=== PATIENT | female | born 1955 | race Caucasian/White ===

== ENCOUNTER → 2017-10-06 | Outpatient (CLI) | payer BC ==
[~2017-10-06] MED LIST: B12; CALC500T30 PO; ESTR1PAT89 TD; HORMONE; HYDR-3870 PO; LEVO250T11 PO; LORA10TA44 PO; MULTIVITAMIN; NAPR-243 PO; NAPR220C11 PO; PHEN-640 PO; TAMS0.4C98 PO
--- NOTE | 2017-10-06 09:23 | Diagnostic Imaging Report ---
INDICATION: Left ureteral stone Supine image of the abdomen is obtained with comparison made to study of 11/09/2011. Overall bowel gas pattern is within normal limits. Bowel overlies the urinary tract which limits evaluation. There is suggestion of a possible 0.4 cm calcification in the region of lower pole of the left calculus. There is an approximately 0.3 cm calcification projecting over the left L3 transverse process which might reside within the left ureter. Surgical suture material seen in the pelvis bilaterally. IMPRESSION: A 0.3 cm calcification may represent ureteric calculus on the left at L3. There is also increased density projecting over the lower pole of the left kidney which may represent lower pole stone. Dictated by: Dictated on workstation # [id number]
== END ==
LOC: RAD 08:51
PROVIDERS: ATTEND Urology
DX: N20.1 Calculus of ureter (principal)
CPT/HCPCS: 74018

== ENCOUNTER → 2017-10-16 | Outpatient (CLI) | payer BC ==
--- NOTE | 2017-10-16 13:48 | Diagnostic Imaging Report ---
INDICATION: Ureteral stone. COMPARISON: Comparison made with prior examination from 10/06/2017. FINDINGS: The bowel gas pattern is nonspecific. There is now a calcification near the left UVJ. There is a persistent stone overlying the left kidney. The osseous structures are unremarkable. IMPRESSION: Presumed nonobstructing left renal stone as well as stone near the left UVJ. Recommend clinical correlation. Nonspecific bowel gas pattern. Dictated by: Dictated on workstation # [id number]
== END ==
LOC: RAD 13:16
PROVIDERS: ATTEND Urology
DX: N20.1 Calculus of ureter (principal)
CPT/HCPCS: 74018

== ENCOUNTER 2017-10-17 05:48 | Outpatient (CLI) | payer BC ==
[~2017-10-17] VITALS: Ht 162.6 cm; Wt 74.8 kg
[~2017-10-17 05:48] MED LIST changes: -ESTR1PAT89 TD; -HYDR-3870 PO; -LEVO250T11 PO; -LORA10TA44 PO; -NAPR220C11 PO; -PHEN-640 PO; -TAMS0.4C98 PO
[2017-10-17] MEDS ORDERED: NAPR220C11 PO (12:27)
[2017-10-17] MEDS ORDERED: ESTR1PAT89 TD (12:27)
[2017-10-17] MEDS ORDERED: LORA10TA44 PO (12:28)
[2017-10-18] MEDS ORDERED: LEVO250T11 PO (12:32)
[2017-10-18] MEDS ORDERED: TAMS0.4C98 PO (12:32)
[2017-10-18] MEDS ORDERED: PHEN-640 PO (12:32)
[2017-10-18] MEDS ORDERED: HYDR-3870 PO (12:32)
== END 2017-10-17 12:53 | disposition home or self-care (01) ==
LOC: PREOP 05:48
PROVIDERS: ATTEND Urology
DX: Z01.818 Encounter for other preprocedural examination (principal)

== ENCOUNTER 2017-10-18 07:51 | Day surgery (SDC) | payer BC ==
[~2017-10-18] VITALS: Ht 162.6 cm; Wt 74.8 kg
[~2017-10-18 07:51] MED LIST changes: +ESTR1PAT89 TD; +LORA10TA44 PO; +NAPR220C11 PO
--- NOTE | 2017-10-18 08:16 | Progress Note-Pre Operative ---
Pre-Operative Progress Note H&P Reviewed The H&P was reviewed, patient examined and no changes noted. Date Seen by Provider: Oct 18, 2017 Time Seen by Provider: 08:16 Date H&P Reviewed: Oct 18, 2017 Time H&P Reviewed: 08:16 Pre-Operative Diagnosis: LT DISTAL URETERAL STONE KATHERINE HELLER MD Oct 18, 2017 8:16 am
[2017-10-18 08:30] VITALS: BP 144/77
[2017-10-18] MEDS ORDERED: NS (IVPB) 50 ML ONE (08:40)
[2017-10-18] MEDS ORDERED: LACTATED RINGERS 1,000 ML IV PRN (08:51)
--- NOTE | 2017-10-18 08:55 | Diagnostic Imaging Report ---
EXAM: ABDOMEN/KUB 1VIEW INDICATION: Renal stones. COMPARISON: Abdominal radiograph 10/16/2017. FINDINGS: Stable 0.5 cm calcification in the region of the left UVJ. Suture lines in the pelvis. Ill-defined calcifications overlying the inferior pole the left kidney. Moderate degenerative changes in the lumbar spine and both hips. No acute osseous findings. Nonspecific bowel gas pattern. IMPRESSION: Stable calcifications overlying the inferior pole of the left kidney and in the region of the left UVJ may represent renal stones. Dictated by: Dictated on workstation # [id number]
[2017-10-18] MEDS ORDERED: cefTRIAXone INJECTION 1,000 MG in NS (IVPB) 50 ML IV ONE (09:00)
[2017-10-18] MEDS ORDERED: SCOPOLAMINE 1.5 MG (TRANSDERM-SCOP) PATCH ONE (09:07)
[2017-10-18] MEDS ORDERED: FAMOTIDINE 20MG/2ML IV (PEPCID) ONE (09:07)
[2017-10-18] MEDS ORDERED: ONDANSETRON 4 MG/2 ML (SDV) Z0FRAN ONE ×2 (09:07→09:20)
[2017-10-18] MEDS ORDERED: ONDANSETRON 4 MG/2 ML (SDV) Z0FRAN IV ONE (09:15)
[2017-10-18] MEDS ORDERED: FAMOTIDINE 20MG/2ML IV (PEPCID) IV ONE (09:15)
[2017-10-18] MEDS ORDERED: SCOPOLAMINE 1.5 MG (TRANSDERM-SCOP) PATCH TOP ONE (09:15)
[2017-10-18] MEDS ORDERED: SEVOFLURANE (ULTANE) 15 ML INHAL SOLN ONE ×3 (09:20→11:11)
[2017-10-18] MEDS ORDERED: LIDOCAINE PF 2% 5 ML (XYLOCAINE) VIAL ONE (09:20)
[2017-10-18] MEDS ORDERED: ROCURONIUM 10 MG/ML 5 ML SYRINGE IV ONE (09:20)
[2017-10-18] MEDS ORDERED: DEXAMETHASONE 10 MG/ML (DECADRON) 1 ML VIAL ONE (09:20)
[2017-10-18] MEDS ORDERED: proPOfol 200 MG/20 ML (DIPRIVAN) VIAL IV ONE (09:20)
[2017-10-18] MEDS ORDERED: fentaNYL INJECTION 100 MCG/2 ML AMP ONE ×2 (09:20→10:25)
[2017-10-18] MEDS ORDERED: MIDAZOLAM 2 MG/2 ML (VERSED) VIAL ONE (09:21)
[2017-10-18] MEDS ORDERED: CATHETER FLUSH 10 ML SYR IV PRN (09:30)
[2017-10-18] MEDS: cefTRIAXone 1 GM (ROCEPHIN) VIAL ONE ×2 (09:35→12:24)
[2017-10-18] MEDS ORDERED: GLYCOPYRROLATE 0.2 MG/ML (ROBINUL) 2 ML VIAL ONE (10:10)
--- NOTE | 2017-10-18 10:26 | Progress Note-Post Operative ---
Post-Operative Progess Note Surgeon (s)/Sterile Products Processor (s) Surgeon KATHERINE HELLER MD Sterile Products Processor: N/A Pre-Operative Diagnosis LT DISTAL URETERAL STONE AND PROLAPSE Post-Operative Diagnosis SAME Procedure & Operative Findings Date of Procedure 10/18/17 Procedure Performed/Findings LT URETEROSCOPY, RETROGRADE UROGRAM, AND LT ESWL Anesthesia Type GENERAL Estimated Blood Loss Estimated blood loss (mL): N/A Specimens/Packing Specimens Removed N/A Packing: N/A KATHERINE HELLER MD Oct 18, 2017 10:25 am
--- NOTE | 2017-10-18 10:27 | Discharge Inst-Urology ---
Discharge Inst-Urology Discharge Medications New, Converted, or Re-newed RX: RX on Chart Patient Instructions/Follow Up Plan Please make appointment to been seen in office in 3 weeks, KUB prior to it. KUB on way home Post ESWL instructions Increase oral fluids for 48 hours and then as needed. Diet and Activity as tolerated. If questions or concerns contact your physician Or seek help at emergency department. KATHERINE HELLER MD Oct 18, 2017 10:27 am
[2017-10-18] MEDS ORDERED: KETOROLAC 30 MG/ML VIAL ONE (10:49)
[2017-10-18] MEDS ORDERED: FUROSEMIDE 40 MG/4 ML INJ (LASIX) ONE (10:49)
[2017-10-18] MEDS ORDERED: fentaNYL INJECTION 100 MCG/2 ML AMP IVP PRN (11:00)
[2017-10-18] MEDS ORDERED: ONDANSETRON 4 MG/2 ML (SDV) Z0FRAN IVP PRN (11:00)
[2017-10-18] MEDS ORDERED: PROMETHAZINE INJ 25 MG/ML (PHENERGAN) AMP IVP PRN (11:00)
[2017-10-18] MEDS ORDERED: HYDROmorphone 2 MG/ML VIAL (DILAUDID) IV PRN (11:00)
[2017-10-18] MEDS ORDERED: HYDROmorphone 1 MG/ML (DILAUDID) 1 ML SYRINGE IV PRN (11:15)
[2017-10-18 12:05] VITALS: BP 138/70
[2017-10-18] MEDS ORDERED: HYDROcodone/APAP 5 MG/325 MG (LORTAB) TAB PO PRN (12:15)
[2017-10-18] MEDS ORDERED: PHENAZOPYRIDINE 100 MG (PYRIDIUM) TABLET PO ONE (12:15)
[2017-10-18] MEDS ORDERED: HYDROcodone/APAP 5 MG/325 MG (LORTAB) TAB ONE (12:15)
[2017-10-18] MEDS ORDERED: PHENAZOPYRIDINE 100 MG (PYRIDIUM) TABLET ONE (12:15)
[2017-10-18] MEDS ORDERED: TAMS0.4C98 PO (12:32)
[2017-10-18] MEDS ORDERED: PHEN-640 PO (12:32)
[2017-10-18] MEDS ORDERED: HYDR-3870 PO (12:32)
[2017-10-18] MEDS ORDERED: LEVO250T11 PO (12:32)
[2017-10-18 12:35] VITALS: BP 153/65
[2017-10-18 13:05] VITALS: BP 139/79
[2017-10-18 13:15] VITALS: BP 139/79
--- NOTE | 2017-10-18 14:55 | Anesthesia-General Post-Op ---
General Patient Condition Mental Status/LOC: Same as Preop Cardiovascular: Satisfactory Nausea/Vomiting: Absent Respiratory: Satisfactory Pain: Controlled Complications: Absent Post Op Complications Complications None Follow Up Care/Instructions Patient Instructions None needed. Anesthesia/Patient Condition Patient Condition Patient is doing well, no complaints, stable vital signs, no apparent adverse anesthesia problems. No complications reported per nursing. MEHNAZ DELGADO CRNA Oct 18, 2017 14:55
--- NOTE | 2017-10-18 15:20 | Diagnostic Imaging Report ---
Indication: Status post lithotripsy. Time of exam: 1:49 PM Correlation is made with prior study earlier the same day. Faint calcific density overlying the lower pole of the left kidney appears similar to earlier today. There are calcific densities in the pelvis which appear stable as well. Bowel gas pattern is unremarkable. Impression: Stable KUB since study earlier the same day. Dictated by: Dictated on workstation # [id number]
--- NOTE | 2017-10-18 18:53 | OPERATIVE REPORT ---
DATE OF SERVICE: 10/18/2017 PREOPERATIVE DIAGNOSIS: Left distal ureteral stone. POSTOPERATIVE DIAGNOSES: Left distal ureteral stone and vaginal prolapse. OPERATION PROCEDURE: Cystoscopy, left ureteroscopy, retrograde urogram and left ESWL. SURGEON: Deacon Heller MD ANESTHESIA: General. COMPLICATIONS: None. DESCRIPTION OF PROCEDURE: Under satisfactory general anesthesia, the patient in lithotomy position on the cystoscopy table. Genitalia were prepped and draped in usual sterile fashion. I observed a significant vaginal prolapse. Cystoscopy was performed with both lenses essentially negative except for a sluggish reflux on the left side. Using the fore oblique lens, I was able to not only to dilate the left ureteral orifice and terminal portion to the level of the stone, but to dislodge the stone and disimpact it. However, because of the prolapse, I was not able to manipulate the semi-rigid ureteroscope to the level of the stone. I attempted to pass a [place] basket, but does not seem to be safe to do it that way, so I removed the ureteroscope, reinserted the cystoscope, passed a 6-Frisian ure[address] catheter way up to the kidney and before that I injected contrast, I could see the filling defect of the stone in the distal ureter very nicely, so we left the ureteral catheter, taped it to move the patient to the ESWL table supine and using injection of contrast, we could localize the stone and delivered shocks at kV of 6, a total of 3000 shocks. We could not see any filling defect anymore and with nice emptying of the ureter after pulling the ureteral catheter out. The patient received a total of 3000 shocks. She received 40 mg of Lasix and 30 mg of Toradol IV at the end of the procedure. She tolerated the procedure and anesthesia well and was sent to recovery room in stable condition. Job ID: [id number] DocumentID: [id number] Dictated Date: 10/18/2017 10:48:07 Studio Artist Date: 10/18/2017 18:52:57 Dictated By: DEACON HELLER MD [facility]
== END 2017-10-18 13:40 | disposition home or self-care (01) ==
LOC: SDC 07:51
PROVIDERS: ATTEND Urology
DX: N20.1 Calculus of ureter (principal); N81.10 Cystocele, unspecified; Z11.2 Encounter for screening for other bacterial diseases; K21.9 Gastro-esophageal reflux disease without esophagitis
CPT/HCPCS: 74018; 87081

== ENCOUNTER → 2018-07-03 | Outpatient (CLI) | payer BC ==
[~2018-07-03] MED LIST changes: +HYDR-3870 PO; +LEVO250T11 PO; +PHEN-640 PO; +TAMS0.4C98 PO
--- NOTE | 2018-07-03 11:15 | Diagnostic Imaging Report ---
INDICATION: RENAL STONES, LIVER CYSTS. TECHNIQUE: Frontal view of the abdomen. COMPARISON: 10/18/2017 FINDINGS: The bowel loops are nondistended. No large collection of free air is seen. There is calcification at the inferior pole of the left kidney which appears unchanged. Faint calcifications in the pelvis appear stable as well. No acute osseous abnormality is seen. IMPRESSION: 1. Stable calcifications at the inferior pole of the left kidney and in the pelvis. Dictated by: Dictated on workstation # [id number]
--- NOTE | 2018-07-03 13:26 | Diagnostic Imaging Report ---
PROCEDURE: US Hepatic (Liver). TECHNIQUE: Multiple real-time grayscale images were obtained over the right upper quadrant in various projections. INDICATION: Nephrolithiasis. FINDINGS: There is increased echogenicity of the liver compatible with fatty infiltration. There is no biliary ductal dilatation. Common bile duct measures less than 4 mm. There is some gallbladder sludge. There is no cholelithiasis, gallbladder wall thickening or pericholecystic fluid. The visualized portions of the pancreas are unremarkable. The right kidney is normal. There is no ascites. IMPRESSION: Fatty infiltration of the liver however no discrete liver cyst. No evidence of cholelithiasis. There is some gallbladder sludge. Dictated by: Dictated on workstation # [id number]
== END ==
LOC: RAD FS 10:03
PROVIDERS: ATTEND Urology
DX: K76.0 Fatty (change of) liver, not elsewhere classified (principal); N20.0 Calculus of kidney; K82.8 Other specified diseases of gallbladder; N28.89 Other specified disorders of kidney and ureter
CPT/HCPCS: 74018; 76705

== ENCOUNTER → 2018-11-12 | Outpatient (CLI) | payer BC ==
--- NOTE | 2018-11-12 11:15 | Diagnostic Imaging Report ---
INDICATION: Knee pain. COMPARISON: None. FINDINGS: 3 views of the left knee joint demonstrate no acute fracture or dislocation. No focal osseous lesions are seen. No significant joint effusion is seen. The surrounding soft tissue structures are unremarkable. There are no radiopaque foreign bodies. IMPRESSION: 1. No acute fractures or dislocations of the left knee joint. Dictated by: Dictated on workstation # [id number]
== END ==
LOC: RAD FS 10:55
PROVIDERS: ATTEND Nurse Practitioner
DX: M25.562 Pain in left knee (principal)
CPT/HCPCS: 73562

== ENCOUNTER → 2019-06-27 | Outpatient (CLI) | payer BC ==
[~2019-06-27] MED LIST changes: -TAMS0.4C98 PO; +TMSL.4C PO
--- NOTE | 2019-06-27 10:13 | Diagnostic Imaging Report ---
INDICATION: Follow-up left renal stone. TIME OF EXAM 9:51 AM COMPARISON is made with prior radiograph from 07/03/2018. The bowel gas pattern is nonobstructed. Previously noted calcifications overlying the lower pole left kidney appear stable. Calcifications in the right hemipelvis are stable. No new abnormality is seen. No free air. IMPRESSION: Stable KUB when compared with an examination of one year earlier. Dictated by: Dictated on workstation # [id number]
== END ==
LOC: RAD FS 09:37
PROVIDERS: ATTEND Urology
DX: K76.89 Other specified diseases of liver (principal); N20.0 Calculus of kidney
CPT/HCPCS: 74018

== ENCOUNTER → 2020-06-29 | Outpatient (CLI) | payer BC ==
--- NOTE | 2020-06-29 13:10 | Diagnostic Imaging Report ---
INDICATION: Left renal calculus. Supine image of the abdomen is obtained with comparison made study of 06/27/2019. FINDINGS: Mild stool content is again seen throughout the colon. Surgical sutures seen in the right lower quadrant which may be related to prior surgery. There is faint linear calcification projected over the lower pole of the left kidney. This is similar when compared to the previous examination. There is no evidence of calculus along the course of either ureter. IMPRESSION: Faint calcification projecting over the lower pole left kidney is stable. No new abnormality is identified. Dictated by: Dictated on workstation # [id number]
--- NOTE | 2020-06-29 14:22 | Diagnostic Imaging Report ---
PROCEDURE: US Renal Bilateral. TECHNIQUE: Multiple real-time grayscale images were obtained over the kidneys in various projections bilaterally. INDICATION: Kidney stones. Right kidney measures 10.8 x 4.7 x 4.1 cm, left kidney measures 11.1 x 5.0 x 5.2 cm. Cortical thickness and echogenicity is normal. Right kidney does contain approximately 11 mm cyst in the midportion. Left kidney contains a 19 mm cyst in the midportion. No calculi or hydronephrosis is identified. A left ureteral jet is visualized. Right ureteral jet cannot be visualized. IMPRESSION: Bilateral renal cysts. No other significant abnormality is seen. No definite calculi or hydronephrosis is identified. Dictated by: Dictated on workstation # [id number]
== END ==
LOC: RAD FS 12:24
PROVIDERS: ATTEND Urology
DX: N28.1 Cyst of kidney, acquired (principal); N28.89 Other specified disorders of kidney and ureter; Z87.442 Personal history of urinary calculi
CPT/HCPCS: 74018; 76770

== ENCOUNTER → 2021-10-26 | Outpatient (CLI) | payer MEDICARE, BC ==
--- NOTE | 2021-10-26 13:44 | Diagnostic Imaging Report ---
INDICATION: Renal stones COMPARISON: 06/29/2020 and ultrasound dated 10/26/2021. TECHNIQUE: Single radiograph of abdomen dated 10/26/2021. FINDINGS: A couple of calcifications are identified overlying the inferior pole of the left renal shadow. The largest measures up to 4. No suspicious calcifications along the expected course of bilateral ureters. Nonobstructive bowel gas pattern. No free air. Minimal apex right curvature of the lumbar spine with mild scattered osseous degenerative changes without acute osseous abnormality. IMPRESSION: Persistent calcifications overlying the inferior pole of the left renal shadow, likely related to calculi. This appears relatively similar to prior imaging from 2020. Nonobstructive bowel gas pattern. Dictated by: Dictated on workstation # [id number]
--- NOTE | 2021-10-26 15:04 | Diagnostic Imaging Report ---
INDICATION: PROCEDURE: Ultrasound abdomen complete. TECHNIQUE: Multiple real-time grayscale images were obtained of the abdomen in various projections. INDICATION: Hepatic cysts and kidney stones. EXAMINATION: Ultrasound abdomen complete 10/26/2021. Correlation made to previous renal sonogram from 06/29/2020 and hepatic sonogram dated 07/03/2018 FINDINGS: There is increased echogenicity throughout the liver consistent with fatty infiltration. No focal cystic lesions appreciated. There is no intrahepatic biliary dilatation. Gallbladder unremarkable with no pericholecystic fluid or gallbladder wall thickening. There is no cholelithiasis. The common bile duct is obscured and not visualized. Visualized pancreas normal. Visualized aorta and IVC unremarkable. Spleen unremarkable as visualized. Right kidney 11.5 cm in length with no hydronephrosis. Left kidney 11.8 cm in length. No hydronephrosis. No solid or cystic masses identified. There is no ascites. IMPRESSION: 1. Hepatic steatosis. Remaining visualized structures unremarkable. Dictated by: Dictated on workstation # [id number]
== END ==
LOC: RAD FS 09:18
PROVIDERS: ATTEND Urology
DX: N20.0 Calculus of kidney (principal); K76.0 Fatty (change of) liver, not elsewhere classified
CPT/HCPCS: 74018; 76700